=== PATIENT | male | born 1960 | race African-American/Black ===

== ENCOUNTER 2018-10-18 06:16 | Emergency (ER) | payer SELFPAY ==
[~2018-10-18] VITALS: Ht 172.7 cm; Wt 84.1 kg
[2018-10-18 06:27] VITALS: BP 176/111
[2018-10-18] MEDS ORDERED: IBUPROFEN 600 MG TABLET PO ONE (06:45)
== END 2018-10-18 06:58 | disposition home or self-care (01) ==
LOC: EMS 06:16
DX: R51 Headache (principal); M54.6 Pain in thoracic spine; M25.521 Pain in right elbow; M79.661 Pain in right lower leg; V09.9XXA Pedestrian injured in unspecified transport accident, initial encounter; Y93.89 Activity, other specified; Y92.89 Other specified places as the place of occurrence of the external cause; Y99.8 Other external cause status